=== PATIENT | female | born 1960 | race Caucasian/White ===

== ENCOUNTER 2017-09-23 11:09 | Emergency (ER) | payer MEDICARE, MEDICAID ==
[2017-09-23 11:32] VITALS: BP 158/82
--- NOTE | 2017-09-23 11:40 | EDM.PDOC ---
ED HPI GENERAL MEDICAL PROBLEM - General Chief Complaint: Genitourinary Problem Stated Complaint: Urinary Problems Time Seen by Provider: 09/23/17 11:40 Source of Information: Reports: Patient History Limitations: Reports: No Limitations - History of Present Illness INITIAL COMMENTS - FREE TEXT/NARRATIVE: Denzel is seen today in the ER. She is my primary care patient. She presented by private vehicle. She has a ureteral stents and has frequent UTI's. She is due for stent exchange on 09/28/17 and is required to have UA with culture prior to the stent exchange. She "got busy and I didn't get in to get that done" and thus why she is here. She states "I know I have an infection because my urine is slimy". She has no fevers, no abdominal pain, no change in urinary frequency. She does state she is very stress out as she broke up with her boyfriend yesterday. "I'm moving back to [place]". She was at [facility] this morning and presented to the ER after [facility]. She has no other symptoms. She is here just to get her UA with culture and get started on antibiotics. She states she has appointments in [place] on 09/26, [place] on 09/27, [place] again on 09/28 and is having her toe amputated on 10/01. Right Lower Flank Pain Score (Numeric/FACES): 5 - Related Data Allergies Allergy/AdvReac Type Severity Reaction Status Date / Time aspirin AdvReac contraindication Verified 09/23/17 11:29 GI Bleed Home Meds: Home Meds Diclofenac Sodium [Voltaren] 1 gm TOP BID PRN 07/22/16 [History] Levothyroxine Sodium 137 mcg PO ACBREAKFAST 07/22/16 [History] Loratadine/Pseudoephedrine [Claritin-D 24 Hour Tablet] 1 each PO DAILY 07/22/16 [History] Acetaminophen [Tylenol Extra Strength] 500 mg PO Q4H PRN 08/21/16 [History] Buffered Salt 1 tab PO TID 08/21/16 [History] Cyanocobalamin (Vitamin B-12) [Cyanocobalamin Injection] 1,000 mcg IJ ASDIRECTED 08/21/16 [History] Magnesium Oxide [Magnesium] 500 mg PO BID 08/21/16 [History] Mometasone Furoate [Nasonex] 17 gm NS DAILY 08/21/16 [History] Ciprofloxacin HCl [Cipro] 500 mg PO BID 08/22/16 [History] Cyclobenzaprine [Flexeril] 5 mg PO BEDTIME 09/22/16 [History] Past Medical History HEENT History: Reports: Cataract, Impaired Vision Genitourinary History: Reports: UTI, Recurrent, Other (See Below) Other Genitourinary History: Left Kidney removed. Right Kidney stent. 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 Musculoskeletal History: Reports: Back Pain, Chronic, Neck Pain, Chronic Psychiatric History: Reports: Anxiety, Depression, Panic Attack Endocrine/Metabolic History: Reports: Hypothyroidism Hematologic History: Reports: B12 Deficiency, Iron Deficiency Oncologic (Cancer) History: Reports: Uterine - Infectious Disease History Infectious Disease History: Reports: Chicken Pox, Hepatitis C - Past Surgical History GI Surgical History: Reports: Appendectomy, Colonoscopy, Other (See Below) Female Surgical History: Reports: Hysterectomy, Nephrectomy, Ureteral Stent Musculoskeletal Surgical History: Reports: Other (See Below) Social & Family History - Tobacco Use Smoking Status *Q: Former Smoker Years of Tobacco use: 10 Packs/Tins Daily: 2 Used Tobacco, but Quit: Yes Month Tobacco Last Used: 10 Second Hand Smoke Exposure: Yes - Caffeine Use Caffeine Use: Reports: Coffee - Recreational Drug Use Recreational Drug Use: No ED ROS GENERAL - Review of Systems Review Of Systems: ROS reveals no pertinent complaints other than HPI. ED EXAM, RENAL/ - Physical Exam Exam: See Below General Appearance: Alert, WD/WN, No Apparent Distress Respiratory/Chest: No Respiratory Distress, Lungs Clear, Normal Breath Sounds Cardiovascular: Regular Rate, Rhythm GI/Abdominal: Normal Bowel Sounds, Non-Tender, No Organomegaly, No Mass, Other ( Ostomy bag in place, site looks good.) Neurological: Alert, Oriented, CN II-XII Intact Skin Exam: Warm, Dry, Intact Course - Vital Signs Last Recorded V/S: Last Vital Signs Temp 96.1 F 09/23/17 11:12 Pulse 83 09/23/17 11:12 Resp 16 09/23/17 11:12 BP 158/82 H 09/23/17 11:12 Pulse Ox 98 09/23/17 11:12 - Orders/Labs/Meds Orders: Active Orders 24 hr Category Date Time Status CULTURE URINE [RM] Stat Lab 09/23/17 12:20 Uncollected Labs: Laboratory Tests 09/23/17 09/23/17 09/23/17 Range/Units 11:34 11:50 11:50 WBC 5.4 (5.0-10.0) 10^3/uL RBC 4.05 (3.80-5.50) 10^6/uL Hgb 12.8 (12.0-16.0) g/dL Hct 38.6 (37.0-47.0) % MCV 95.2 H (82.0-92.0) fL MCH 31.6 H (27.0-31.0) pg MCHC 33.2 (32.0-36.0) g/dL RDW 12.1 (11.5-14.5) % Plt Count 217 (150-300) 10^3/uL MPV 9.6 (7.4-10.4) fL Neut % (Auto) 75.8 H (50.0-70.0) % Lymph % (Auto) 13.9 L (20.0-40.0) % [place] % (Auto) 8.1 H (2.0-8.0) % Eos % (Auto) 1.0 (1.0-3.0) % Baso % (Auto) 1.2 H (0.0-1.0) % Neut # (Auto) 4.0 (2.5-7.0) 10^3/uL Lymph # (Auto) 0.8 L (1.0-4.0) 10^3/uL Waldo # (Auto) 0.4 (0.1-0.8) 10^3/uL Eos # (Auto) 0.1 (0.1-0.3) 10^3/uL Baso # (Auto) 0.1 (0.0-0.1) 10^3/uL Sodium 133 L (136-145) mmol/L Potassium 4.0 (3.3-5.3) mmol/L Chloride 99 (98-115) mmol/L Carbon Dioxide 23.2 (21.0-32.0) mmol/L BUN 11 (6-25) mg/dL Creatinine 1.27 H (0.51-1.17) mg/dL Est Cr Clr Drug Dosing 45.75 mL/min Estimated GFR (MDRD) 43 mL/min Glucose 97 (70-110) mg/dL Calcium 8.7 (8.7-10.3) mg/dL Specimen Type Urincc Urine Color Yellow (YELLOW) Urine Appearance Cloudy H (CLEAR) Urine pH 5.5 (5.0-9.0) Ur Specific [place] <= 1.005 (1.005-1.030) Urine Protein 30 H (NEGATIVE) mg/dL Urine Glucose (UA) Negative (NEGATIVE) mg/dL Urine Ketones Negative (NEGATIVE) mg/dL Urine Occult Blood Moderate H (NEGATIVE) Urine Nitrite Positive H (NEGATIVE) Urine Bilirubin Negative (NEGATIVE) Urine Urobilinogen 0.2 (0.2-1.0) E.U./dL Ur Leukocyte Esterase Large H (NEGATIVE) Urine RBC 10-20 H /HPF Urine WBC Semi-packed /HPF Ur Epithelial Cells Few /LPF Urine Bacteria Many H (NONE TO FEW) /HPF Meds: Medications Discontinued Medications Generic Name Dose Route Start Last Admin Trade Name Freq PRN Reason Stop Dose Admin Ceftriaxone Sodium 1 gm 09/23/17 12:25 Rocephin IM 09/23/17 12:26 ONETIME ONE - Re-Assessments/Exams Free Text/Narrative Re-Assessment/Exam: Labs back and reviewed. CBC largely unremarkable. BMP with elevated Creatinine at 1.2 but this is her baseline. BUN WNL. Sodium slightly depressed but stable compared to previous. UA positive for UTI. Culture pending. Based on previous culture result she had Klebsiella that was sensitive to the cephalosporins. In the ED she received 1 gram Rocephin IM x 1 and was sent home with a script for Keflex 500 mg PO QID x 10 days. Keep all follow-up appointments. She was given a written prescription for the Keflex, # 40 with no refills. Of note, BP elevated but this is isolated and not an issue when she comes in for clinic appointments. Will monitor as an outpatient. 09/23/17 12:29 09/23/17 12:33 Departure - Departure Time of Disposition: 12:32 Disposition: Home, Self-Care 01 Condition: Good Clinical Impression: UTI, Urinary tract infectious disease - Discharge Information Referrals: Marcela Villa MD [Primary Care Provider] - Forms: ED Department Discharge Additional Instructions: Keep all your appointments, especially for your stent exchange on 09/28/17. - Problem List & Annotations (1) UTI (urinary tract infection) SNOMED Code(s): 27865445 Code(s): N39.0 - URINARY TRACT INFECTION, SITE NOT SPECIFIED Status: Acute Current Visit: Yes - Problem List Review Problem List Initiated/Reviewed/Updated: Yes - My Orders Last 24 Hours: My Active Orders 09/23/17 12:20 CULTURE URINE [RM] Stat - Assessment/Plan Last 24 Hours: My Active Orders 09/23/17 12:20 CULTURE URINE [RM] Stat Assessment:: UTI Plan: Rocephin 1 gram IM in ER, start Keflex 500 mg PO QID on 09/24/17. Keep appt with urology, Dr. Cobb for this upcoming week.
[2017-09-23] MEDS ORDERED: cefTRIAXone 1 GM Vial IM ONE (12:25)
== END 2017-09-23 12:45 | disposition home or self-care (01) ==
LOC: KA.ED 11:09
DX: N39.0 Urinary tract infection, site not specified (principal); Z88.8 Allergy status to other drugs, medicaments and biological substances; Z87.891 Personal history of nicotine dependence
CPT/HCPCS: 36415; 80048; 81001; 85025; 87086; 96372; 99283; J0696; 87088; 87186

== ENCOUNTER 2018-01-05 10:17 | Emergency (ER) | payer MEDICARE, MEDICAID ==
[2018-01-05] MEDS ORDERED: Morphine 2 MG/ML Syringe IVPUSH ONE ×2 (10:31→12:15)
[2018-01-05] MEDS ORDERED: Sodium Chloride 0.9% 5 ML Syringe FLUSH PRN (10:32)
[2018-01-05 11:02] VITALS: BP 137/69
--- NOTE | 2018-01-05 11:28 | EDM.PDOC ---
ED HPI GENERAL MEDICAL PROBLEM - General Chief Complaint: Lower Extremity Injury/Pain Stated Complaint: POSSIBLE RIGHT HIP FRACTURE Time Seen by Provider: 01/05/18 10:45 Source of Information: Reports: Patient, RN - History of Present Illness INITIAL COMMENTS - FREE TEXT/NARRATIVE: 57-year-old female is brought in by ambulance possible fracture. Patient's dates that she missed a large step earlier this morning fell directly onto her right hip and had immediate pain and discomfort. She was evaluated by EMS noted with shortening and external rotation of her right leg. Her only current complaint is right hip pain. She does have a history of chronic back pain and is on chronic pain management oxycodone following uterine cancer 25 years ago which she had radiation. She is also had a left nephrectomy right kidney stent ileostomy and stenting of the left iliac which she states was resulted from radiation 25 years ago she has a history of thyroid disorder takes levothyroxine takes vitamin B12 with 1 she has an inhaler 4 hours and is just finished a Z-Jeremías for sinus infection she takes baclofen for chronic back pain and Voltaren gel. Primary care Dr. Marcela Garza but follows [facility] every couple months with her home health aide. She is on disability on occasion. She denies any loss of consciousness or head trauma. She denies other pain complaints in her left lower extremity or upper extremities. 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 Right Hip Pain Score (Numeric/FACES): 8 - Related Data Allergies Allergy/AdvReac Type Severity Reaction Status Date / Time aspirin AdvReac contraindication Verified 01/05/18 11:16 GI Bleed Home Meds: Home Meds Diclofenac Sodium [Voltaren] 1 gm TOP BID PRN 07/22/16 [History] Levothyroxine Sodium 137 mcg PO ACBREAKFAST 07/22/16 [History] Loratadine/Pseudoephedrine [Claritin-D 24 Hour Tablet] 1 each PO DAILY 07/22/16 [History] Buffered Salt 1 tab PO TID 08/21/16 [History] Cyanocobalamin (Vitamin B-12) [Cyanocobalamin Injection] 1,000 mcg IJ ASDIRECTED 08/21/16 [History] Mometasone Furoate [Nasonex] 17 gm NS DAILY 08/21/16 [History] Albuterol [Ventolin HFA] 1 puff INH BID PRN 01/05/18 [History] Baclofen 10 mg PO DAILY PRN 01/05/18 [History] oxyCODONE HCl/Acetaminophen [Percocet 5-325 mg Tablet] 0.5 tab PO Q4HR PRN 01/05 [History] Past Medical History HEENT History: Reports: Cataract, Impaired Vision Genitourinary History: Reports: UTI, Recurrent, Other (See Below) Other Genitourinary History: Left Kidney removed. Right Kidney stent. 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 Musculoskeletal History: Reports: Back Pain, Chronic, Neck Pain, Chronic Psychiatric History: Reports: Anxiety, Depression, Panic Attack Endocrine/Metabolic History: Reports: Hypothyroidism Hematologic History: Reports: B12 Deficiency, Iron Deficiency Oncologic (Cancer) History: Reports: Uterine - Infectious Disease History Infectious Disease History: Reports: Chicken Pox, Hepatitis C - Past Surgical History GI Surgical History: Reports: Appendectomy, Colonoscopy, Other (See Below) Female Surgical History: Reports: Hysterectomy, Nephrectomy, Ureteral Stent Musculoskeletal Surgical History: Reports: Other (See Below) Social & Family History - Tobacco Use Smoking Status *Q: Former Smoker Years of Tobacco use: 10 Packs/Tins Daily: 2 Used Tobacco, but Quit: Yes Month/Year Tobacco Last Used: 10 Second Hand Smoke Exposure: Yes - Caffeine Use Caffeine Use: Reports: Coffee - Recreational Drug Use Recreational Drug Use: No Drug Use in Last 12 Months: No Recreational Drug Type: Reports: Marijuana/Hashish, Methamphetamine Recreational Drug Use Frequency: Not Used In Over 1 Year Review of Systems - Review of Systems Review Of Systems: ROS reveals no pertinent complaints other than HPI. ED EXAM, GENERAL - Physical Exam Exam: See Below Exam Limited By: No Limitations General Appearance: Alert, WD/WN, No Apparent Distress Nose: Normal Inspection Throat/Mouth: Normal Inspection, Normal Voice, No Airway Compromise Head: Atraumatic, Normocephalic Neck: Normal Inspection Respiratory/Chest: No Respiratory Distress, Lungs Clear Cardiovascular: Normal Peripheral Pulses, Regular Rate, Rhythm Peripheral Pulses: 2+: Dorsalis Pedis (L), Dorsalis Pedis (R) GI/Abdominal: Soft, Other (ileostomy) Back Exam: No: Vertebral Tenderness Extremities: Normal Inspection (normal inspection of the left lower extremity and bilateral upper extremities), Normal Range of Motion (normal range of motion the left lower extremity and bilateral upper extremities), Other (right hip is shortened and externally rotated) Neurological: Alert, Oriented, CN II-XII Intact, No Motor/Sensory Deficits Psychiatric: Normal Affect, Normal Mood Skin Exam: Warm, Dry, Intact, Normal Color EKG INTERPRETATION EKG Date: 01/05/18 Time: 11:25 Rhythm: NSR [employer]: Normal P-Wave: Present QRS: Normal ST-T: Normal QT: Normal Comparison: NA - No Prior EKG EKG Interpretation Comments: Normal ECG Course - Vital Signs Last Recorded V/S: Last Vital Signs Temp 97.8 F 01/05/18 10:47 Pulse 88 01/05/18 10:47 Resp 18 01/05/18 10:47 BP 137/69 01/05/18 10:47 Pulse Ox 96 01/05/18 10:47 - Orders/Labs/Meds Orders: Active Orders 24 hr Category Date Time Status EKG Documentation Completion [RC] ASDIRECTED Care 01/05/18 11:08 Ordered Peripheral IV Care [RC] . DIRECTED Care 01/05/18 10:32 Active Hip Min 1V w Pelvis Rt [CR] Stat Exams 01/05/18 11:07 Taken BASIC METABOLIC PANEL,BMP [CHEM] Stat Lab 01/05/18 11:06 Ordered CBC WITH AUTO DIFF [HEME] Stat Lab 01/05/18 11:06 Ordered Sodium Chloride 0.9% [Syrex Flush] Med 01/05/18 10:32 Active 5 ml FLUSH Q8HR PRN Peripheral IV Insertion Adult [OM.PC] Routine Oth 01/05/18 10:32 Ordered EKG 12 Lead [EK] Routine Ther 01/05/18 11:07 Ordered Medication Orders Sodium Chloride (Syrex Flush) 5 ml FLUSH Q8HR PRN PRN Reason: Keep Vein Open Last Admin: 01/05/18 10:40 Dose: 5 ml Meds: Medications Generic Name Dose Route Start Last Admin Trade Name Freq PRN Reason Stop Dose Admin Sodium Chloride 5 ml 01/05/18 10:32 01/05/18 10:40 Syrex Flush FLUSH 5 ml Q8HR PRN Administration Keep Vein Open Discontinued Medications Generic Name Dose Route Start Last Admin Trade Name Tomq PRN Reason Stop Dose Admin Morphine Sulfate 2 mg 01/05/18 10:31 01/05/18 10:40 Morphine IVPUSH 01/05/18 10:32 2 mg ONETIME ONE Administration - Radiology Interpretation Free Text/Narrative:: AP pelvis and single AP view right hip Interpretation There is subtrochanteric fracture with intertrochanteric extension of the right hip with displacement. Impression Right hip subtrochanteric fracture with intertrochanteric extension - Re-Assessments/Exams Free Text/Narrative Re-Assessment/Exam: 01/05/18 11:32 Patient was given 2 mg IV morphine now reports her pain as a 4 out of 10 and is comfortable [facility] management for her right subtrochanteric hip fracture. Departure - Departure Time of Disposition: 12:00 Disposition: DC/Tfer to Acute Hospital 02 Condition: Good Clinical Impression: Closed subtrochanteric fracture of hip Qualifiers: Encounter type: initial encounter Fracture alignment: displaced Laterality: right Qualified Code(s): S72.21XA - Displaced subtrochanteric fracture of right femur, initial encounter for closed fracture - Discharge Information Instructions: Hip Fracture Referrals: Marcela Villa MD [Primary Care Provider] - Forms: ED Department Discharge, Interfacility Transfer EMTALA - My Orders Last 24 Hours: My Active Orders 01/05/18 10:32 Peripheral IV Care [RC] . DIRECTED Sodium Chloride 0.9% [Syrex Flush] 5 ml FLUSH Q8HR PRN Peripheral IV Insertion Adult [OM.PC] Routine 01/05/18 11:06 BASIC METABOLIC PANEL,BMP [CHEM] Stat CBC WITH AUTO DIFF [HEME] Stat 01/05/18 11:07 Hip Min 1V w Pelvis Rt [CR] Stat EKG 12 Lead [EK] Routine 01/05/18 11:08 EKG Documentation Completion [RC] ASDIRECTED - Assessment/Plan Last 24 Hours: My Active Orders 01/05/18 10:32 Peripheral IV Care [RC] . DIRECTED Sodium Chloride 0.9% [Syrex Flush] 5 ml FLUSH Q8HR PRN Peripheral IV Insertion Adult [OM.PC] Routine 01/05/18 11:06 BASIC METABOLIC PANEL,BMP [CHEM] Stat CBC WITH AUTO DIFF [HEME] Stat 01/05/18 11:07 Hip Min 1V w Pelvis Rt [CR] Stat EKG 12 Lead [EK] Routine 01/05/18 11:08 EKG Documentation Completion [RC] ASDIRECTED Assessment:: Right subtrochanteric hip fracture Plan: 1. Call to [facility] for transfer for definitive orthopedic management the patient's right subtrochanteric fracture was accepted. Patient is comfortable at this time. She was given 2 mg of morphine IV. Labs CBC BMP were drawn. EKG was completed in normal sinus rhythm. She'll be transferred by ground ambulance up to [place] and has been a admitted under hospitalist.
[2018-01-05] MEDS ORDERED: Sodium Chloride 0.9% 1,000 ML IV SCH (12:30)
== END 2018-01-05 12:37 ==
LOC: KA.ED 10:17
DX: S72.21XA Displaced subtrochanteric fracture of right femur, initial encounter for closed fracture (principal); Z87.891 Personal history of nicotine dependence; E03.9 Hypothyroidism, unspecified; Z79.899 Other long term (current) drug therapy; Z79.82 Long term (current) use of aspirin; W10.9XXA Fall (on) (from) unspecified stairs and steps, initial encounter
CPT/HCPCS: 36415; 73501; 80048; 85025; 96374; 96376; 99285; J2270; J7030

== ENCOUNTER 2018-07-02 05:15 | Emergency (ER) | payer MEDICARE, MEDICAID ==
[2018-07-02] MEDS ORDERED: Ondansetron 4 MG/2 ML SDV IVPUSH ONE (05:28)
[2018-07-02] MEDS ORDERED: HYDROmorphone 1 MG/ML Syringe IVPUSH ONE (05:28)
[2018-07-02] MEDS ORDERED: Ondansetron 4 MG/2 ML SDV ONE (05:30)
--- NOTE | 2018-07-02 05:36 | EDM.PDOC ---
ED HPI GENERAL MEDICAL PROBLEM - General Chief Complaint: Genitourinary Problem Stated Complaint: R flank pain Time Seen by Provider: 07/02/18 05:31 Source of Information: Reports: Patient History Limitations: Reports: No Limitations - History of Present Illness INITIAL COMMENTS - FREE TEXT/NARRATIVE: 58 YO WF complaining of severe right flank pain which began last night. Pt has nephrostomy tube in right kidney. Pt recently had it replaced (10 days ago) by interventional radiology. Pt reports 100cc of urine drained since 9pm last night which is unusual since she typically wakes up with a full bag > 500cc. Pt denies any fever/chills. She does have a history of chronic back pain and is on chronic pain management oxycodone following uterine cancer 25 years ago which she had radiation. She is also had a left nephrectomy right kidney stent ileostomy and stenting of the left iliac which she states was resulted from radiation 25 years ago. Onset: Today Duration: Day(s): (1) Location: Reports: Back Quality: Reports: Ache Severity: Severe Improves with: Reports: None Worsens with: Reports: None Associated Symptoms: Reports: No Other Symptoms. Denies: Fever/Chills, Nausea/ Vomiting - Related Data Allergies Allergy/AdvReac Type Severity Reaction Status Date / Time Tetracyclines Allergy Rash Verified 07/02/18 05:17 aspirin AdvReac contraindication Verified 07/02/18 05:17 GI Bleed Home Meds: Home Meds Diclofenac Sodium [Voltaren] 1 gm TOP BID PRN 07/22/16 [History] Cyanocobalamin (Vitamin B-12) [Cyanocobalamin Injection] 1,000 mcg PO ASDIRECTED 08/21/16 [History] Mometasone Furoate [Nasonex] 17 gm NS BID 08/21/16 [History] Albuterol [Ventolin HFA] 1 puff INH BID PRN 01/05/18 [History] Baclofen 5 mg PO Q4HR PRN 01/05/18 [History] oxyCODONE HCl/Acetaminophen [Percocet 5-325 mg Tablet] 1 tab PO Q4HR PRN [History] Cetirizine HCl/Pseudoephedrine [ZyrTEC-D] 1 tab PO DAILY PRN 02/19/18 [History] Ondansetron [Zofran ODT] 4 mg PO Q6H PRN 02/19/18 [History] Levothyroxine 125 mcg PO ACBREAKFAST 07/02/18 [History] Past Medical History HEENT History: Reports: Cataract, Impaired Vision Respiratory History: Reports: Other (See Below) Other Respiratory History: smoker Genitourinary History: Reports: UTI, Recurrent, Other (See Below) Other Genitourinary History: Left Kidney removed. Right Kidney stent. 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 after that she ended up with and ileostomy and kidney damage. - Infectious Disease History Infectious Disease History: Reports: Chicken Pox, Hepatitis C - Past Surgical History GI Surgical History: Reports: Appendectomy, Colonoscopy, Other (See Below) Other GI Surgeries/Procedures: illeostomy Female Surgical History: Reports: Hysterectomy, Nephrectomy, Ureteral Stent Musculoskeletal Surgical History: Reports: Joint Replacement, ORIF Social & Family History - Family History Family Medical History: Noncontributory - Caffeine Use Caffeine Use: Reports: Coffee ED ROS GENERAL - Review of Systems Review Of Systems: See Below Constitutional: Reports: No Symptoms HEENT: Reports: No Symptoms Respiratory: Reports: No Symptoms Cardiovascular: Reports: No Symptoms Endocrine: Reports: No Symptoms GI/Abdominal: Reports: No Symptoms : Reports: Flank Pain Musculoskeletal: Reports: Back Pain Skin: Reports: No Symptoms Neurological: Reports: No Symptoms Psychiatric: Reports: No Symptoms Hematologic/Lymphatic: Reports: No Symptoms Immunologic: Reports: No Symptoms ED EXAM, RENAL/ - Physical Exam Exam: See Below Exam Limited By: No Limitations General Appearance: Alert, WD/WN, No Apparent Distress Head: Atraumatic, Normocephalic Neck: Normal Inspection, Supple, Non-Tender, Full Range of Motion Respiratory/Chest: No Respiratory Distress, Lungs Clear, Normal Breath Sounds, No Accessory Muscle Use, Chest Non-Tender Cardiovascular: Normal Peripheral Pulses, Regular Rate, Rhythm, No Edema, No Gallop, No JVD, No Murmur, No Rub GI/Abdominal: Normal Bowel Sounds, Soft, Non-Tender, No Organomegaly, No Distention, No Abnormal Bruit, No Mass Back Exam: CVA Tenderness (R) Extremities: Normal Inspection, Normal Range of Motion, Non-Tender, Normal Capillary Refill, No Pedal Edema Neurological: Alert, Oriented, CN II-XII Intact, Normal Cognition, Normal Gait, Normal Reflexes, No Motor/Sensory Deficits Psychiatric: Normal Affect, Normal Mood Skin Exam: Warm, Dry, Intact, Normal Color, No Rash Lymphatic: No Adenopathy Course - Vital Signs Last Recorded V/S: Last Vital Signs Temp 36.6 C 07/02/18 05:15 Pulse 68 07/02/18 06:23 Resp 16 07/02/18 06:23 BP 91/44 L 07/02/18 06:23 Pulse Ox 94 L 07/02/18 06:23 - Orders/Labs/Meds Orders: Active Orders 24 hr Category Date Time Status URINALYSIS W/MICROSCOPIC [UA W/MICROSCOPIC] [URIN] Stat Lab 07/02/18 05:55 Ordered Sodium Chloride 0.9% [Syrex Flush] Med 07/02/18 05:20 Active 5 ml FLUSH Q8HR PRN Saline Lock Insert [OM.PC] Routine Oth 07/02/18 05:20 Ordered Medication Orders Sodium Chloride (Syrex Flush) 5 ml FLUSH Q8HR PRN PRN Reason: Keep Vein Open Last Admin: 07/02/18 05:41 Dose: 5 ml Labs: Laboratory Tests 07/02/18 07/02/18 07/02/18 Range/Units 05:25 05:25 05:55 WBC 11.09 H (5.00-10.00) 10^3/uL RBC 3.72 L (3.80-5.50) 10^6/uL Hgb 12.0 (12.0-16.0) g/dL Hct 35.4 L (37.0-47.0) % MCV 95.2 H D (82.0-92.0) fL MCH 32.3 H (27.0-31.0) pg MCHC 33.9 (32.0-36.0) g/dL RDW 14.2 (11.5-14.5) % Plt Count 257 (150-400) 10^3/uL MPV 10.9 H (7.4-10.4) fL Immature Gran % (Auto) 0.2 (0.0-5.0) % Neut % (Auto) 84.5 H (50.0-70.0) % Lymph % (Auto) 8.2 L (20.0-40.0) % [place] % (Auto) 5.6 (2.0-8.0) % Eos % (Auto) 1.1 (1.0-3.0) % Baso % (Auto) 0.4 (0.0-1.0) % Immature Gran # (Auto) 0.02 (0.00-0.50) 10^3/uL Neut # (Auto) 9.38 H (2.50-7.00) 10^3/uL Lymph # (Auto) 0.91 L (1.00-4.00) 10^3/uL [place] # (Auto) 0.62 (0.10-0.80) 10^3/uL Eos # (Auto) 0.12 (0.10-0.30) 10^3/uL Baso # (Auto) 0.04 (0.00-0.10) 10^3/uL Sodium 129 L (136-145) mmol/L Potassium 3.8 (3.3-5.3) mmol/L Chloride 99 (98-115) mmol/L Carbon Dioxide 24.5 (21.0-32.0) mmol/L Anion Gap 9.3 (5-15) mmol/L BUN 17 (6-25) mg/dL Creatinine 1.26 H (0.51-1.17) mg/dL Est Cr Clr Drug Dosing 45.56 mL/min Estimated GFR (MDRD) 44 mL/min Glucose 109 mg/dL Calcium 8.4 L (8.7-10.3) mg/dL Specimen Type Urinuro Urine Color Light yellow (YELLOW) Urine Appearance Cloudy H (CLEAR) Urine pH 5.5 (5.0-9.0) Ur Specific [place] <= 1.005 (1.005-1.030) Urine Protein 100 H (NEGATIVE) mg/dL Urine Glucose (UA) Negative (NEGATIVE) mg/dL Urine Ketones Negative (NEGATIVE) mg/dL Urine Occult Blood Moderate H (NEGATIVE) Urine Nitrite Positive H (NEGATIVE) Urine Bilirubin Negative (NEGATIVE) Urine Urobilinogen 0.2 (0.2-1.0) E.U./dL Ur Leukocyte Esterase Large H (NEGATIVE) Urine RBC 5-10 H /HPF Urine WBC 40-50 H /HPF Ur Epithelial Cells Not seen /LPF Amorphous Sediment Moderate H (0/HPF) /HPF Urine Bacteria Many H (NONE TO FEW) /HPF Urinalysis Comment Meds: Medications Generic Name Dose Route Start Last Admin Trade Name Freq PRN Reason Stop Dose Admin Sodium Chloride 5 ml 07/02/18 05:20 07/02/18 05:41 Syrex Flush FLUSH 5 ml Q8HR PRN Administration Keep Vein Open Discontinued Medications Generic Name Dose Route Start Last Admin Trade Name Freq PRN Reason Stop Dose Admin Hydromorphone HCl 1 mg 07/02/18 05:28 07/02/18 05:38 Dilaudid IVPUSH 07/02/18 05:29 1 mg ONETIME ONE Administration Ondansetron HCl 4 mg 07/02/18 05:28 07/02/18 05:38 Zofran IVPUSH 07/02/18 05:29 4 mg ONETIME ONE Administration Ondansetron HCl Confirm 07/02/18 05:30 07/02/18 05:38 Zofran Administered 07/02/18 05:31 Not Given Dose 4 mg .ROUTE .STK-MED ONE Departure - Departure Time of Disposition: 06:39 Disposition: DC/Tfer to [facility] 02 Condition: Fair Clinical Impression: Nephrostomy tube displaced, Pyelonephritis - Discharge Information Referrals: Marcela Villa MD [Primary Care Provider] - Forms: ED Department Discharge, Interfacility Transfer EMTALA - My Orders Last 24 Hours: My Active Orders 07/02/18 05:20 Sodium Chloride 0.9% [Syrex Flush] 5 ml FLUSH Q8HR PRN Saline Lock Insert [OM.PC] Routine 07/02/18 05:55 URINALYSIS W/MICROSCOPIC [UA W/MICROSCOPIC] [URIN] Stat - Assessment/Plan Last 24 Hours: My Active Orders 07/02/18 05:20 Sodium Chloride 0.9% [Syrex Flush] 5 ml FLUSH Q8HR PRN Saline Lock Insert [OM.PC] Routine 07/02/18 05:55 URINALYSIS W/MICROSCOPIC [UA W/MICROSCOPIC] [URIN] Stat Assessment:: 1. acute pyelonephritis 2. possible displaced nephrostomy tube Plan: 1. transfer to [facility]- Dr Kasper 2. rocephin 1g IV 3. dilaudid/zofran for pain and nausea 4. supportive care
[2018-07-02] MEDS: Sodium Chloride 0.9% 5 ML Syringe FLUSH PRN ×2 (05:41→06:54)
[2018-07-02 06:31] LABS: ANION GAP 9.3 mmol/L (5-15)
[2018-07-02] MEDS ORDERED: cefTRIAXone 1 GM Vial IVPUSH ONE (06:40)
[2018-07-02] MEDS ORDERED: cefTRIAXone 1 GM Vial ONE (06:41)
[2018-07-02 07:05] VITALS: BP 102/50
[2018-07-02] MEDS ORDERED: HYDROmorphone 1 MG/ML Syringe ONE (08:10)
== END 2018-07-02 07:20 ==
LOC: KA.ED 05:15
DX: T83.022A Displacement of nephrostomy catheter, initial encounter (principal); N12 Tubulo-interstitial nephritis, not specified as acute or chronic; Z79.899 Other long term (current) drug therapy; Z88.6 Allergy status to analgesic agent; Z88.1 Allergy status to other antibiotic agents
CPT/HCPCS: 36415; 80048; 81001; 85025; 96374; 96375; 99284; 99285; J0696; J1170; J2405